=== PATIENT | female | born 1955 | race Caucasian/White ===

== ENCOUNTER → 2017-04-12 | Outpatient (CLI) | payer OTHER ==
[~2017-04-12] MED LIST: ATEN50TA PO; ATOR1TAB18 PO; CALC1TAB34 PO; EXEM25TA PO; GABA100C4 PO; GABA300C5 PO; HYDR-3288 PO; METH4PAK PO; OMEGCAP PO; VITA100T65 PO
[2017-04-12 15:05] LABS: AUTOMATED NEUTROPHIL # 3.6 TH/MM3 (1.8-7.7); BASOPHIL % 0.7 % (0.0-2.0); EOSINOPHIL # 0.1 TH/MM3 (0-0.4); EOSINOPHIL % 1.9 % (0.0-4.0); HEMATOCRIT 40.2 % (35.0-46.0); HEMO FLAGS DIFF FINAL; LYMPH % 38.8 % (9.0-44.0); LYMPHOCYTE # 2.7 TH/MM3 (1.0-4.8); MEAN CELL VOLUME 90.9 FL (80.0-100.0); MEAN CORPUSCULAR HEMOGLOBIN 29.2 PG (27.0-34.0); MEAN CORPUSCULAR HGB CONC 32.1 % (32.0-36.0); MONO % 7.5 % (0.0-8.0); NEUT % 51.1 % (16.0-70.0); PLATELET COUNT 199 TH/MM3 (150-450); RED BLOOD COUNT 4.43 MIL/MM3 (4.00-5.30); RED CELL DISTRIBUTION WIDTH 15.4 % (11.6-17.2)
--- NOTE | 2017-04-13 11:34 | EKG ---
Date Performed: 04/12/2017 Time Performed: 14:33:25 PTAGE: 61 years EKG: Normal Sinus rhythm Low precordial lead voltage Nonspecific ST-T wave changes Clinical correlation needed BORDERLINE ECG NO PREVIOUS TRACING DOCTOR: Michael Cazares Interpretating Date/Time 04/13/2017 11:33:36
== END ==
LOC: CPRE 13:48
PROVIDERS: ATTEND Orthopaedic Surgery Orthopaedic Surgery of the Spine
DX: Z01.810 Encounter for preprocedural cardiovascular examination (principal); Z01.812 Encounter for preprocedural laboratory examination; S52.122A Displaced fracture of head of left radius, initial encounter for closed fracture; R94.31 Abnormal electrocardiogram [ECG] [EKG]; X58.XXXA Exposure to other specified factors, initial encounter
CPT/HCPCS: 36415; 85025; 93005

== ENCOUNTER → 2017-04-13 | Day surgery (SDC) | payer OTHER ==
[~2017-04-13] VITALS: Ht 170.2 cm; Wt 88.8 kg
[~2017-04-13] MED LIST changes: +ACETAMINOPHEN 1000 MG/100 ML VIAL IV ONE; +ACETAMINOPHEN/HYDROcodone 325 MG/7.5 MG TAB PO PRN; +BUPIVACAINE HCL PF 0.5% 30 ML VIAL ONE; +CHLORHEXIDINE GLUCONATE 2 % 1 PACK (2 CLOTHS) TOPICAL PRN; +DO NOT ADM ANY ANTICOAGULANT DRUGS PRN; +FAMOTIDINE 20 MG/2 ML VIAL ONE; +GENTAMICIN SULFATE 80 MG/2 ML VIAL ONE; +INSULIN HUMAN REGULAR 1,000 UNITS/10 ML VIAL SQ PRN; +LACTATED RINGER'S 1000 ML INJ 1,000 ML IV ONE; +LACTATED RINGER'S 1000 ML IV PRN; +METOPROLOL TARTRATE 25 MG TAB PO PRN; +MIDAZOLAM HCL 2 MG/2 ML VIAL ONE; +MORPHINE SULFATE 4 MG/ML INJ IV PRN; +ONDANSETRON HCL 4 MG/2 ML VIAL IV PUSH ONE; +POVIDONE IODINE 5% (ANTISEPSIS KIT) 4 APPLICATIONS EACH NARE PRN; +POVIDONE IODINE 7.5% SCRUB 118 ML BOTTLE TOPICAL SCH; +PROPOFOL 200 MG/20 ML AMP IV ONE; +SODIUM CHLORID 0.9% 500 ML IV PRN; +ceFAZolin 2 GM PREMIX 50 ML IV SCH; +fentaNYL CITRATE 250 MCG/5 ML AMP ONE
--- NOTE | 2017-04-13 06:20 | MH ---
cc: BALDOMERO FARIAS M.D. DATE OF ADMISSION: 04/13/2017 ADMISSION DIAGNOSIS Fractured left radial head. HISTORY This is a 61-year-old female who was returning back from an out of country vacation when she tripped over some luggage. She sustained an injury to her left elbow. Investigative studies shows evidence of a displaced radial head fracture. She presents for surgical treatment. PAST MEDICAL HISTORY, SOCIAL HISTORY, FAMILY HISTORY, REVIEW OF SYSTEMS See attached notes. PHYSICAL EXAMINATION GENERAL: A 61-year-old female in moderate distress with her left arm. HEENT: Normocephalic, atraumatic. Pupils equal, round, reactive to light and accommodation. Extraocular motions intact. NECK: Supple. CHEST: Clear. HEART: Regular rate and rhythm. ABDOMEN: Soft, nontender with normoactive bowel sounds. MUSCULOSKELETAL EXAMINATION: Left Arm - She is in a long-arm splint. Sensation is normal. Pain with supination and pronation. Neurologic and vascular examination is within normal limits. IMPRESSION Fractured left radial head. PLAN open treatment, internal fixation left radial head fracture. CONSENT There are risks with surgery including infection, bleeding, loss of motion, continued pain, need for further surgery, neurologic and vascular injury. The patient understands these issues and wishes to press on with surgery as outlined above. MD STEPH Gil/CONY /11:07 PM /6:17 AM
[2017-04-13 10:25] VITALS: BP 148/82; PULSE 59; RESP 20; TEMP 98.1; O2SAT 95
--- NOTE | 2017-04-13 15:23 | PD.OP ---
cc: Clayton Grewal MD Operative Report Date of Surgery: Apr 13, 2017 Preoperative Diagnosis: Fracture left radial head Postoperative Diagnosis: Same. Disruption annular ligament left proximal radius Procedure: Open treatment internal fixation left radial head fracture with headless screws Repair annular ligament, left proximal radius Anesthesia: Gen. Surgeon: Clayton Grewal Zoning Administrator(s): ABHISHEK Mas Operation and Findings: EBL: Minimal INDICATION: This patient is a 61-year-old female who 2 days ago fell while leaving an airport out of country and flying back home. She had an injury to the left elbow. She was seen at urgent care center and x-ray showed evidence of a radial head fracture with displacement. I saw her yesterday. It was recognized that she need a surgical treatment. She brought the operating room today for internal fixation NOTE: Amber Mas PA-C was present for the entire surgical procedure as my miller first. In my medical opinion her skill and care was necessary for proper management of this patient. PROCEDURE: The patient was brought to the operating room and anesthetized in the supine position. This patient was positioned with the arm on the arm table. Fluoroscopy was used for visualization. A timeout was done. Antibiotics were given within 1 hour time window. The left arm was scrubbed with alcohol followed by Hibiclens followed by ChloraPrep and draped sterilely. A tourniquet was placed after exsanguination the tourniquet was inflated to 250 mmHg. lateral incision was made over the region of the radial head as visualized under fluoroscopy. The fascia was opened longitudinally. An arthrotomy was performed. The radial head was very unstable. There appeared to be a disruption of the annular ligament. This was exposed further. Dissection allowed good visualization of the joint. There was a large fragment that was displaced approximately 7 or 8 mm and rotated 90. It was on the ulnar side. Very carefully this was curetted of callus formation and irrigated. There was a punch type fracture. We were able to supinate with force. We used a freer underneath the punch fracture and elevated it. We then brought the ulnar fragment and reduced this anatomically. This was held provisionally while headless screws were placed on the near side through the fragment on the other side. We used a sequence of the pin followed by measuring and then used a [employer]ynthes headless screws. Fixation was felt be very good. The fracture was reduced anatomically. Intraoperative x-rays were obtained confirming the same. We able to supination and pronate without any evidence of impingement catching or locking. Intraoperative x-rays were obtained confirming satisfactory position of the hardware and fixation with reduction of the fracture. The tourniquet was let down. Hemostasis was controlled with the bipolar cautery. The wound was irrigated closely. The annular ligament was repaired with interrupted sutures. The fascia with interrupted #1 Vicryl suture, subcutaneous tissue 2-0 Vicryl suture and skin with running intradermal 3-0 Vicryl followed West Steri-Strips and benzoin. A local block was used with half percent Marcaine.. A sterile dressing and a splint was applied. The patient was awakened and taken to the recovery room in satisfactory condition. COMPANY: Clayton Wagner MD Apr 13, 2017 15:23
[2017-04-13 17:55] VITALS: BP 147/97; PULSE 73; RESP 20; TEMP 97.3; O2SAT 96
--- NOTE | 2017-04-13 20:19 | RADRPT ---
EXAM DATE/TIME: 04/13/2017 14:58 [facility] COMPARISON: No previous studies available for comparison. INDICATIONS : ORIF of the left radial head. MEDICAL HISTORY : Hypertension. Carcinoma, breast. Carcinoma, cervix. SURGICAL HISTORY : None. ENCOUNTER: Initial ACUITY: 1 day PAIN SCORE: Non-responsive. LOCATION: Left radial head. FINDINGS: 3 magnified C-arm spot views show 2 threaded orthopedic screws traversing the radial head paralleling the articular surface. Subcutaneous air as well as air within the joint is observed. CONCLUSION: Limited images as detailed above. Scottie Cedillo Jr., MD on April 13, 2017 at 20:17 Board Certified Radiologist. This report was verified electronically.
== END | disposition home or self-care (01) ==
LOC: HSDC 10:03
PROVIDERS: ATTEND Orthopaedic Surgery Orthopaedic Surgery of the Spine
DX: S52.122A Displaced fracture of head of left radius, initial encounter for closed fracture (principal); Z01.812 Encounter for preprocedural laboratory examination; W01.0XXA Fall on same level from slipping, tripping and stumbling without subsequent striking against object, initial encounter
CPT/HCPCS: 01830; 24665; 73070; 76000; C1713; J0131; J0690; J1580; J2250; J2405; J3010; J7120